=== PATIENT | male | born 1940 | race Caucasian/White ===

== ENCOUNTER 2018-05-08 14:56 | Outpatient (CLI) | payer MEDICARE ==
--- NOTE | 2018-05-09 16:05 | Ultrasound Report ---
Procedure Date: 05/08/2018 Accession Number: [id number] / [id number] Procedure: US - Bladder CPT Code: FULL RESULT: EXAM: Bladder DATE: 05/08/2018 4:02 PM CLINICAL HISTORY: FREQUENCY OF MICTURITION COMPARISON: None. TECHNIQUE/FINDINGS: Grayscale images of the bladder were obtained before and after voiding. Prevoid bladder volume is 113.5 cc and post void bladder volume is 12.4 cc. Subjectively the bladder wall appears somewhat thickened which may be due to the low bladder volume. IMPRESSION: Post void residual volume of 12.4 cc. RADIA
== END 2018-05-08 14:57 | disposition home or self-care (01) ==
LOC: DI 14:56
PROVIDERS: ATTEND Internal Medicine
DX: R35.0 Frequency of micturition (principal)
CPT/HCPCS: 76857

== ENCOUNTER 2019-04-25 11:28 | Outpatient (CLI) | payer MEDICARE ==
--- NOTE | 2019-04-25 16:06 | XRAY Report ---
Reason: MID TO LOW BACK PAIN WITH RADICULOPATHY Procedure Date: 04/25/2019 Accession Number: [id number] / [id number] Procedure: XR - Thoracic Spine 2 View CPT Code: FULL RESULT: EXAM: THORACIC SPINE RADIOGRAPHY EXAM DATE: 04/25/2019 12:43 PM. CLINICAL HISTORY: MID TO LOW BACK PAIN WITH RADICULOPATHY. COMPARISON: LUMBAR SPINE 2 VIEW 04/25/2019 12:21 PM. TECHNIQUE: 2 views. FINDINGS: Alignment: Normal. No spondylolisthesis or scoliosis. Bones: Mild anterior wedge compression deformity of L1 is better seen on the lumbar spine radiographs. No thoracic compression fracture is detected. Disks: There is loss of disk space height with prominent osteophytosis formation at T8-T9. Soft Tissues: Normal. The visualized lungs and cardiomediastinal silhouette are normal. IMPRESSION: Degenerative changes, most pronounced at T8-T9. RADIA
--- NOTE | 2019-04-25 16:06 | XRAY Report ---
Reason: MID TO LOW BACK PAIN WITH RADICULOPATHY Procedure Date: 04/25/2019 Accession Number: [id number] / [id number] Procedure: XR - Lumbar Spine 2 View CPT Code: FULL RESULT: EXAM: LUMBOSACRAL SPINE RADIOGRAPHY EXAM DATE: 04/25/2019 12:45 PM. CLINICAL HISTORY: Mid to low back pain with radiculopathy. COMPARISONS: MRI LUMBAR SPINE 08/06/2011 1:47 PM. TECHNIQUE: 2 views. FINDINGS: Alignment: The patient is status post posterior fusion with interbody graft, no osseous union, at the L3-L4 level secured by posterior pedicle screws on the left with interconnecting rods, no hardware on the right side. At this level there is approximately 1 cm anterolisthesis of the L3 vertebral body on L4. Additionally, there are 3 mm retrolisthesis of L2 on L3. Bones: Five txl-hek-gneurdm lumbar vertebral bodies are present. The bones are qualitatively osteopenic; this limits evaluation for underlying fractures or masses. There is approximately 30% of loss of height anteriorly of the L1 vertebral body with minimal loss of height of the L2 vertebral body. Fractures are new compared to the lumbar spine MRI in 2010 which appears to predate the interbody fusion graft placement. Disks: The L1-L2 disk space is narrowed with endplate sclerosis and marginal osteophytosis, similar findings at the L2-L3 disk space, moderate at both levels. There is likely at least partial fusion of L4 on L5, limited evaluation due to osteopenia. Facets: Facet arthropathy is severe at L3, L4 and L5. Sacroiliac Joints: Unremarkable. Soft Tissues: Normal. The visualized bowel gas pattern is normal. IMPRESSION: Compared to the 2011 lumbar spine MRI, interval progression of anterolisthesis of L3 on L4 and retrolisthesis of L2 on L3 with interval surgical fusion without osseous union at L3-L4. RADIA
== END 2019-04-25 11:29 | disposition home or self-care (01) ==
LOC: DI 11:28
PROVIDERS: ATTEND Physician Assistant Medical
DX: M51.34 Other intervertebral disc degeneration, thoracic region (principal); M47.816 Spondylosis without myelopathy or radiculopathy, lumbar region; M43.16 Spondylolisthesis, lumbar region; Z98.1 Arthrodesis status
CPT/HCPCS: 72070; 72100

== ENCOUNTER 2019-06-21 14:05 | Outpatient (CLI) | payer MEDICARE ==
[2019-06-21] MEDS ORDERED: GADOBUTROL 15 MMOL/15 ML VIAL IVP ONE (15:41)
--- NOTE | 2019-06-22 14:42 | MRI Report ---
Reason: CHRONIC MID TO LOW BACK LUMBAR ANTEROLISTHESIS, PA Procedure Date: 06/21/2019 Accession Number: [id number] / [id number] Procedure: MRI - Thoracic Spine W/O CPT Code: FULL RESULT: EXAM: MRI THORACIC SPINE WITHOUT CONTRAST EXAM DATE: 06/21/2019 02:41 PM. CLINICAL HISTORY: Chronic mid to low back lumbar anterolisthesis, pain. COMPARISONS: THORACIC SPINE 2 VIEW 04/25/2019 12:21 PM LUMBAR SPINE W/WO 06/21/2019 3:21 PM. TECHNIQUE: Multiplanar, multisequence T1-weighted and fluid-sensitive sequences of the thoracic spine from C7 to L1 without contrast. Other: None. FINDINGS: Spinal Canal: No signal abnormality in the visualized spinal cord. Alignment: No scoliosis or spondylolisthesis. Bone Marrow: No thoracic fracture. Small limbus vertebra at the lower T8 level. Refer to lumbar MRI report for L1 vertebral body abnormality and marrow edema partially visualized on the thoracic spine exam. Disk Levels/Facets: There is mild multilevel degenerative facet arthropathy. Mild degenerative disk changes with mild disk height loss and marginal osteophytes. However, no significant thoracic disk bulges or protrusions. No thoracic spinal canal or foraminal stenosis. Musculature: Normal. No edema or fatty atrophy. Other: Unremarkable. IMPRESSION: 1. Minimal thoracic degenerative disk and facet arthropathy. 2. No thoracic central canal or foraminal stenosis. RADIA
--- NOTE | 2019-06-22 14:54 | MRI Report ---
Reason: CHRONIC MID TO LOW BACK LUMBAR ANTEROLISTHESIS, PA Procedure Date: 06/21/2019 Accession Number: [id number] / [id number] Procedure: MRI - Lumbar Spine W/WO CPT Code: FULL RESULT: EXAM: MRI LUMBAR SPINE WITHOUT AND WITH CONTRAST EXAM DATE: 06/21/2019 03:48 PM. CLINICAL HISTORY: Chronic mid to low back pain. Lumbar anterolisthesis. COMPARISONS: LUMBAR SPINE 2 VIEW 04/25/2019 12:21 PM MRI LUMBAR SPINE 08/06/2011 1:47 PM. TECHNIQUE: Multiplanar, multisequence T1-weighted and fluid-sensitive sequences of the lumbar spine from T12 to S1 before and after administration of intravenous contrast. Other: None. IV contrast: 12 cc Gadavist. FINDINGS: Neurologic Structures: The conus terminates at L1. The conus medullaris and cauda equina are unremarkable. Alignment: Approximately 4 mm anterior subluxation L3 on L4. 3 mm posterior subluxation L1 on L2 and L2 on L3. Bone Marrow: Five ncl-nmw-zztsmuh lumbar vertebral bodies are assumed. There is mild to moderate L1 inferior endplate compression fracture with associated marrow edema which could be acute or subacute. Some degree of diskogenic edema at the upper L2 level. Solid fusion of the L4 and L5 vertebral bodies. Posterior fusion with left-sided pedicle screws and stabilization jessica at the L3-L4 level. Disk Levels/Facets: T12-L1: Disk dehydration. Slight annular disk bulge. No significant stenosis. L1-L2: Disk dehydration. Mild retrolisthesis. Annular disk bulge. Mild degenerative facet arthropathy. Prominence of posterior epidural fat. Moderate central canal stenosis. Moderate left foraminal stenosis. L2-L3: Retrolisthesis. Disk height loss. Disk dehydration. Endplate irregularity. Annular disk bulge. Moderate degenerative facet arthropathy. Moderate to severe central canal stenosis. Severe bilateral foraminal stenosis. L3-L4: Grade 1 spondylolisthesis. Moderate facet hypertrophy. Posterior fusion with fusion of the facet joints. Mild effacement of the thecal sac. Mild left greater than right foraminal stenosis. L4-L5: Solid fusion. Mild right greater than left foraminal stenosis. L5-S1: Disk height loss. Annular disk bulge and moderate facet arthropathy. Posterior decompression. Severe bilateral foraminal stenosis. Spinal Canal: No enhancing masses within the spinal canal. No epidural abscess. Musculature: Atrophy of the lower paraspinous musculature. Other: The visualized retroperitoneum is unremarkable. IMPRESSION: 1. L1 mild inferior endplate compression fracture with associated marrow edema which could be acute or subacute. Some degree of associated diskogenic edema as well. 2. L1-L2 moderate central canal stenosis and moderate left foraminal stenosis. 3. L2-L3 moderate to severe central canal stenosis and severe bilateral foraminal stenosis. 4. Previous fusion at L4-L5. Previous posterior fusion at L3-L4. 5. L5-S1 severe bilateral foraminal stenosis. Comment: The following findings are so common in adults without low back pain that while we report their presence, they must be interpreted with caution and in the context of the clinical situation. (Reference Joselynvik et al, Spine 2001) Prevalence of findings in patients without low back pain: Disk degeneration (any evidence): 92% Disk desiccation/T2 signal loss: 83% Disk height loss: 56% Disk bulge: 64% Disk protrusion: 32% Annular tear/high intensity zone: 38% RADIA
== END 2019-06-21 14:06 | disposition home or self-care (01) ==
LOC: DI 14:05
PROVIDERS: ATTEND Physician Assistant Medical
DX: M51.34 Other intervertebral disc degeneration, thoracic region (principal); M47.814 Spondylosis without myelopathy or radiculopathy, thoracic region; M48.56XA Collapsed vertebra, not elsewhere classified, lumbar region, initial encounter for fracture; M51.36 Other intervertebral disc degeneration, lumbar region; M48.061 Spinal stenosis, lumbar region without neurogenic claudication; M47.816 Spondylosis without myelopathy or radiculopathy, lumbar region; M43.16 Spondylolisthesis, lumbar region; Z98.1 Arthrodesis status
CPT/HCPCS: 72146; 72158

== ENCOUNTER 2020-07-07 14:46 | Outpatient (CLI) | payer MEDICARE ==
[2020-07-07 15:27] LABS: ALBUMIN/GLOBULIN RATIO 1.2 (1.0-2.2); BILIRUBIN,TOTAL 0.8 mg/dL (0.2-1.0); CALCIUM 9.1 mg/dL (8.5-10.3); CREATININE 0.8 mg/dL (0.6-1.2); TOTAL PROTEIN 7.3 g/dL (6.7-8.2)
[2020-07-07 15:41] LABS: CREATININE,URINE 286.4 mg/dL; MICROALBUM/CREATININE RATIO,UR 18.9 ug/mg (<30.0); MICROALBUMIN,URINE 5.4 mg/dL (0-300.0)
== END 2020-07-07 14:47 | disposition home or self-care (01) ==
LOC: LAB 14:46
PROVIDERS: ATTEND Physician Assistant
DX: I10 Essential (primary) hypertension (principal); Z79.891 Long term (current) use of opiate analgesic
CPT/HCPCS: 36415; 80053; 82043; 82570